=== PATIENT | male | born 1960 | race African-American/Black ===

== ENCOUNTER 2021-12-19 12:28 | Inpatient (IN) | payer MEDICARE, MEDICAID ==
[~2021-12-19] VITALS: Ht 175.3 cm; Wt 97.1 kg
[2021-12-19 14:55] LABS: BASOPHILS % 0.4 % (0.0-2.0); EOSINOPHILS % 0.8 % (0.0-5.0); HEMOGLOBIN. 10.4 g/dL (14.0-18.0); LYMPHOCYTES % 23.7 % (20.0-50.0); MEAN CORPUSCULAR HEMOGLOBIN 33.8 pg (28.0-32.0); MEAN CORPUSCULAR VOLUME 100.3 fL (80.0-94.0); MEAN PLATELET VOLUME 8.4 fl (7.4-10.4); MONOCYTES % 12.2 % (2.0-8.0); NEUTROPHILS % 62.9 % (40.0-76.0); PLATELET 164 x1000/uL (130-400); RED BLOOD CELL COUNT 3.09 mill/uL (4.7-6.1); RED CELL DISTRIBUTION WIDTH 15.8 % (11.6-14.6)
[2021-12-19 15:05] LABS: CHLORIDE 112 mEq/L (98-107)
[2021-12-19 15:13] LABS: ETHANOL BLOOD < 10 mg/dL
[2021-12-19] MEDS ORDERED: DEXTROSE 50% WATER 50ML SYRINGE IV PRN (21:30)
[2021-12-19] MEDS ORDERED: CLONIDINE 0.1MG TABLET PO PRN (21:30)
[2021-12-19] MEDS ORDERED: ACETAMINOPHEN 325MG TABLET PO PRN ×2 (21:30)
[2021-12-19] MEDS ORDERED: ZOLPIDEM TARTRATE 5MG TABLET PO PRN (21:30)
[2021-12-19 22:22] LABS: HEPATITIS B SURFACE ANTIGEN NEGATIVE
[2021-12-19 22:30] VITALS: BP 159/86
[2021-12-19 23:00] VITALS: BP 159/86
[2021-12-19] MEDS ORDERED: DIVA-75 MT (23:09)
[2021-12-19] MEDS ORDERED: GLIP5TAB12 MT (23:09)
[2021-12-19] MEDS ORDERED: TEMA15CA MT (23:09)
[2021-12-19] MEDS ORDERED: LEVVL SQ (23:09)
[2021-12-19] MEDS ORDERED: DUTA0.5C37 MT (23:09)
[2021-12-19] MEDS ORDERED: IPRA4AER INH (23:09)
[2021-12-19] MEDS ORDERED: ESCI-7 MT (23:09)
[2021-12-19] MEDS ORDERED: ASCO-339 MT (23:09)
[2021-12-19] MEDS ORDERED: LORA-249 MT (23:09)
[2021-12-19] MEDS ORDERED: TAMS-11 MT (23:09)
[2021-12-19] MEDS ORDERED: BUPR100T13 MT (23:09)
[2021-12-19] MEDS ORDERED: RISP2TAB53 MT (23:09)
[2021-12-19] MEDS ORDERED: OMEP20CA14 MT (23:09)
[2021-12-19] MEDS ORDERED: SEVE800T8 MT (23:09)
[2021-12-19] MEDS ORDERED: AMLO5TAB88 MT (23:09)
[2021-12-20] MEDS: SODIUM CHLORIDE 0.9% INJ 3ML FLUSH IVF SCH ×3 (00:23→13:37)
[2021-12-20 04:10] VITALS: BP 140/83
[2021-12-20] MEDS: OMEPRAZOLE 20MG CAPSULE EXTENDED RELEASE PO SCH ×2 (06:21→20:36)
[2021-12-20] MEDS: BLOOD SUGAR DIAGNOSTIC STRIP TEST SCH ×4 (06:21→20:40)
[2021-12-20 06:40] LABS: PHOSPHORUS 4.3 mg/dL (2.5-4.9)
[2021-12-20 06:42] LABS: BASOPHILS % 0.6 % (0.0-2.0); EOSINOPHILS % 1.1 % (0.0-5.0); HEMATOCRIT. 30.6 % (42.0-52.0); HEMOGLOBIN. 10.2 g/dL (14.0-18.0); LYMPHOCYTES % 22.4 % (20.0-50.0); MEAN CORPUSCULAR HEMOGLOBIN 34.3 pg (28.0-32.0); MEAN CORPUSCULAR VOLUME 102.7 fL (80.0-94.0); MEAN PLATELET VOLUME 8.9 fl (7.4-10.4); MONOCYTES % 10.5 % (2.0-8.0); NEUTROPHILS % 65.4 % (40.0-76.0); PLATELET 163 x1000/uL (130-400); RED BLOOD CELL COUNT 2.98 mill/uL (4.7-6.1); RED CELL DISTRIBUTION WIDTH 15.4 % (11.6-14.6)
[2021-12-20] MEDS: INSULIN LISPRO 100 UNITS/ML SUBCUT SCH ×4 (07:50→20:40)
[2021-12-20 08:12] VITALS: BP 127/82
[2021-12-20] MEDS: BUPROPION HCL 100MG SR TABLET PO SCH (08:49)
[2021-12-20] MEDS: SEVELAMER CARBONATE 800 MG TABLET PO SCH ×3 (08:50→18:06)
[2021-12-20] MEDS: RISPERIDONE 1MG TABLET PO SCH ×2 (08:50→20:36)
[2021-12-20] MEDS: DUTASTERIDE 0.5MG CAPSULE PO SCH (08:50)
[2021-12-20] MEDS: DIVALPROEX SODIUM 500MG DR TABLET PO SCH ×2 (08:50→20:36)
[2021-12-20] MEDS: TAMSULOSIN HCL 0.4MG SR CAPSULE PO SCH (08:51)
[2021-12-20] MEDS: AMLODIPINE 5MG TABLET PO SCH (08:52)
[2021-12-20 12:00] VITALS: BP 118/82
[2021-12-20 16:00] VITALS: BP 118/73
[2021-12-20 20:00] VITALS: BP 130/91
[2021-12-21] VITALS: BP 118/71
[2021-12-21 04:00] VITALS: BP 118/70
[2021-12-21] MEDS: SODIUM CHLORIDE 0.9% INJ 3ML FLUSH IVF SCH ×3 (05:40→13:25)
[2021-12-21 07:33] LABS: BASOPHILS % 0.7 % (0.0-2.0); EOSINOPHILS % 1.6 % (0.0-5.0); HEMATOCRIT. 31.1 % (42.0-52.0); HEMOGLOBIN. 10.5 g/dL (14.0-18.0); LYMPHOCYTES % 31.9 % (20.0-50.0); MEAN CORPUSCULAR HEMOGLOBIN 34.2 pg (28.0-32.0); MEAN CORPUSCULAR VOLUME 101.3 fL (80.0-94.0); MEAN PLATELET VOLUME 8.7 fl (7.4-10.4); MONOCYTES % 12.3 % (2.0-8.0); NEUTROPHILS % 53.5 % (40.0-76.0); PLATELET 161 x1000/uL (130-400); RED BLOOD CELL COUNT 3.06 mill/uL (4.7-6.1); RED CELL DISTRIBUTION WIDTH 15.6 % (11.6-14.6)
[2021-12-21] MEDS: INSULIN LISPRO 100 UNITS/ML SUBCUT SCH ×4 (07:45→20:37)
[2021-12-21 07:55] LABS: PHOSPHORUS 3.4 mg/dL (2.5-4.9)
[2021-12-21 08:00] VITALS: BP 124/76
[2021-12-21] MEDS: DIVALPROEX SODIUM 500MG DR TABLET PO SCH ×2 (08:22→20:36)
[2021-12-21] MEDS: SEVELAMER CARBONATE 800 MG TABLET PO SCH ×3 (08:22→17:32)
[2021-12-21] MEDS: TAMSULOSIN HCL 0.4MG SR CAPSULE PO SCH (08:23)
[2021-12-21] MEDS: AMLODIPINE 5MG TABLET PO SCH (08:23)
[2021-12-21] MEDS: OMEPRAZOLE 20MG CAPSULE EXTENDED RELEASE PO SCH (08:23)
[2021-12-21] MEDS: DUTASTERIDE 0.5MG CAPSULE PO SCH (08:23)
[2021-12-21] MEDS: RISPERIDONE 1MG TABLET PO SCH ×2 (08:23→20:37)
[2021-12-21] MEDS: BUPROPION HCL 100MG SR TABLET PO SCH (08:23)
[2021-12-21 12:00] VITALS: BP 134/82
[2021-12-21] MEDS: BLOOD SUGAR DIAGNOSTIC STRIP TEST SCH ×3 (13:07→20:37)
[2021-12-21 16:00] VITALS: BP 139/87
[2021-12-21 20:00] VITALS: BP 136/80
[2021-12-22] VITALS: BP 128/84
[2021-12-22] MEDS: SODIUM CHLORIDE 0.9% INJ 3ML FLUSH IVF SCH ×4 (05:58→21:46)
[2021-12-22] MEDS: INSULIN LISPRO 100 UNITS/ML SUBCUT SCH ×4 (07:15→21:00)
[2021-12-22] MEDS: BLOOD SUGAR DIAGNOSTIC STRIP TEST SCH ×4 (07:20→21:45)
[2021-12-22 08:30] VITALS: BP 150/93
[2021-12-22] MEDS ORDERED: FAMOTIDINE 20MG TABLET PO SCH (09:00)
[2021-12-22] MEDS: TAMSULOSIN HCL 0.4MG SR CAPSULE PO SCH (09:15)
[2021-12-22] MEDS: DUTASTERIDE 0.5MG CAPSULE PO SCH (09:15)
[2021-12-22] MEDS: SEVELAMER CARBONATE 800 MG TABLET PO SCH ×3 (09:16→18:00)
[2021-12-22] MEDS: DIVALPROEX SODIUM 500MG DR TABLET PO SCH ×2 (09:16→21:45)
[2021-12-22] MEDS: BUPROPION HCL 100MG SR TABLET PO SCH (09:17)
[2021-12-22] MEDS: RISPERIDONE 1MG TABLET PO SCH ×2 (09:17→21:45)
[2021-12-22] MEDS: AMLODIPINE 5MG TABLET PO SCH (09:17)
[2021-12-22 10:02] LABS: BASOPHILS % 0.6 % (0.0-2.0); EOSINOPHILS % 1.9 % (0.0-5.0); HEMATOCRIT. 32.1 % (42.0-52.0); HEMOGLOBIN. 10.9 g/dL (14.0-18.0); LYMPHOCYTES % 29.3 % (20.0-50.0); MEAN CORPUSCULAR HEMOGLOBIN 34.4 pg (28.0-32.0); MEAN CORPUSCULAR VOLUME 101.3 fL (80.0-94.0); MEAN PLATELET VOLUME 9.2 fl (7.4-10.4); MONOCYTES % 11.9 % (2.0-8.0); NEUTROPHILS % 56.3 % (40.0-76.0); PLATELET 168 x1000/uL (130-400); RED BLOOD CELL COUNT 3.16 mill/uL (4.7-6.1); RED CELL DISTRIBUTION WIDTH 15.1 % (11.6-14.6)
[2021-12-22 11:02] LABS: PHOSPHORUS 4.3 mg/dL (2.5-4.9)
[2021-12-22 12:15] VITALS: BP 118/81
[2021-12-22 16:23] VITALS: BP 152/82
[2021-12-22 20:00] VITALS: BP 134/83
[2021-12-22 21:15] VITALS: BP 145/67
== END 2021-12-22 22:55 | DRG 73 ==
LOC: ER 12:28 → EDBEDREQ 18:34 → 6EST 19:07 → EDBEDREQ 19:08 → EDBEDREQTM 19:08 → ENRESERV 20:26 → 6WST 22:30
PROVIDERS: ADMIT Internal Medicine; ATTEND Internal Medicine
PROC: 5A1D70Z Performance of Urinary Filtration, Intermittent, Less than 6 Hours Per Day (ICD-10-PCS; principal; 2021-12-19)
PROC: 5A1D70Z Performance of Urinary Filtration, Intermittent, Less than 6 Hours Per Day (ICD-10-PCS; 2021-12-20)
PROC: 5A1D70Z Performance of Urinary Filtration, Intermittent, Less than 6 Hours Per Day (ICD-10-PCS; 2021-12-22)
DX: G90.8 Other disorders of autonomic nervous system (principal); N18.6 End stage renal disease; I12.0 Hypertensive chronic kidney disease with stage 5 chronic kidney disease or end stage renal disease; E11.22 Type 2 diabetes mellitus with diabetic chronic kidney disease; G40.909 Epilepsy, unspecified, not intractable, without status epilepticus; F99 Mental disorder, not otherwise specified; J44.9 Chronic obstructive pulmonary disease, unspecified; W06.XXXA Fall from bed, initial encounter; Z99.2 Dependence on renal dialysis; E11.51 Type 2 diabetes mellitus with diabetic peripheral angiopathy without gangrene; E78.5 Hyperlipidemia, unspecified; Z88.8 Allergy status to other drugs, medicaments and biological substances; Z89.512 Acquired absence of left leg below knee; Z88.0 Allergy status to penicillin; Z88.2 Allergy status to sulfonamides; S61.411A Laceration without foreign body of right hand, initial encounter; S81.011A Laceration without foreign body, right knee, initial encounter; W01.0XXA Fall on same level from slipping, tripping and stumbling without subsequent striking against object, initial encounter; Y93.89 Activity, other specified; Y92.89 Other specified places as the place of occurrence of the external cause; Y99.8 Other external cause status; Z82.49 Family history of ischemic heart disease and other diseases of the circulatory system; M47.819 Spondylosis without myelopathy or radiculopathy, site unspecified; M48.00 Spinal stenosis, site unspecified
CPT/HCPCS: 36415; 71045; 72170; 80048; 80053; 80320; 82962; 83036; 83605; 83735; 83880; 84100; 84484; 85025; 86705; 86709; 86803; 87340; 99285; G0480